=== PATIENT | male | born 1975 | race Two or more races ===

== ENCOUNTER → 2020-06-30 | Outpatient (CLI) | payer BC ==
[2020-06-30 16:06] LABS: Urine Blood Negative /uL (Negative)
[2020-06-30 16:28] LABS: Albumin 3.9 g/dL (3.4-5.0); Calcium 9.2 mg/dL (8.5-10.1); Potassium 3.7 mmol/L (3.5-5.1); Uric Acid 4.5 mg/dL (3.5-7.2)
[2020-06-30 16:33] LABS: BUN/Creatinine Ratio 13.1; Bilirubin, Total 0.4 mg/dL (0.2-1.0); Total Protein 7.8 g/dL (6.4-8.2)
[2020-06-30 16:39] LABS: Free T4 (Free Thyroxine) 1.4 ng/dL (0.89-1.76)
[2020-06-30 16:40] LABS: Free T3 2.96 pg/mL (2.3-4.2); Prostate Specific Antigen 0.34 ng/mL (0.0-4.0); T3 Total 0.67 ng/mL (0.60-1.81)
== END | disposition home or self-care (01) ==
LOC: LAB 15:42
DX: Z12.5 Encounter for screening for malignant neoplasm of prostate (principal); Z76.89 Persons encountering health services in other specified circumstances; Z00.00 Encounter for general adult medical examination without abnormal findings; R10.84 Generalized abdominal pain; R82.90 Unspecified abnormal findings in urine
CPT/HCPCS: 36415; 80053; 80061; 81003; 82607; 83036; 83615; 84153; 84403; 84439; 84443; 84480; 84481; 84550